=== PATIENT | female | born 1985 | race Caucasian/White ===

== ENCOUNTER 2019-07-26 10:49 | Emergency (ER) | payer BC ==
[~2019-07-26] VITALS: Ht 172 cm; Wt 54.4 kg
[2019-07-26 11:17] LABS: CLARITY,URINE BLOODY; GLUCOSE, URINE (UA) NEGATIVE (NEGATIVE); NITRITE,URINE NEGATIVE (NEGATIVE); PROTEIN,URINE 4+ (NEGATIVE)
--- NOTE | 2019-07-26 11:19 | ED GU-Female ---
General Chief Complaint: - Urinary Stated Complaint: BLOOD IN URINE Nursing Triage Note: Patient reports urinary urgency and hematuria starting this morning. denies nausea or vomiting. Nursing Sepsis Screen: No Definite Risk Source: patient Exam Limitations: no limitations History of Present Illness Date Seen by Provider: Jul 26, 2019 Time Seen by Provider: 11:18 Initial Comments To ER per private vehicle from home with reports of urinary urgency, frequency, marked hematuria starting this morning. Denies any pain denies nausea denies fevers or chills. No history of this. Timing/Duration: constant, getting worse Location: unknown Radiation: none Activities at Onset: none Prior Genitourinary Problems: none Associated Symptoms: dysuria Allergies and Home Medications Allergies Coded Allergies: Sulfa (Sulfonamide Antibiotics) (Unverified Allergy, Unknown, 10/25/15) Patient Home Medication List Home Medication List Reviewed: Yes Review of Systems Review of Systems Constitutional: see HPI; No chills, No fever EENTM: see HPI Respiratory: no symptoms reported Cardiovascular: no symptoms reported Genitourinary: see HPI, hematuria Musculoskeletal: no symptoms reported Skin: no symptoms reported Psychiatric/Neurological: No Symptoms Reported Endocrine: No Symptoms Reported Past Evltnbz-Untvzy-Jzdmew Hx Patient Social History Alcohol Use: Denies Use Recreational Drug Use: No Smoking Status: Never a Smoker Recent Foreign Travel: No Contact w/Someone Who Travel: No Recent Infectious Disease Expo: No Physical Abuse: No Sexual Abuse: No Mistreated: No Past Medical History Surgeries: No Respiratory: No Cardiac: No Neurological: No Reproductive Disorders: No Genitourinary: No Gastrointestinal: No Musculoskeletal: No Endocrine: No HEENT: No Cancer: No Psychosocial: No Integumentary: No Blood Disorders: No Adverse Reaction/Blood Tranf: No Physical Exam Vital Signs Vital Signs - First Documented 07/26/19 11:06 Temp 36.3 Pulse 118 Resp 18 B/P (MAP) 128/88 (101) Pulse Ox 100 Capillary Refill : Less Than 3 Seconds Height, Weight, BMI Height: '" Weight: lbs. oz. kg; 18.00 BMI Method: General Appearance: WD/WN, no apparent distress HEENT: PERRL/EOMI, normal ENT inspection Respiratory: no respiratory distress, no accessory muscle use Gastrointestinal: normal bowel sounds, non tender, soft Back: No CVA tenderness (R), No CVA tenderness (L) Extremities: normal range of motion, non-tender Neurologic/Psychiatric: alert, normal mood/affect, oriented x 3 Skin: normal color, warm/dry Progress/Results/Core Measures Suspected Sepsis Recent Fever Within 48 Hours: No Infection Criteria Present: None New/Unexplained Altered Menta: No Sepsis Screen: No Definite Risk SIRS Temperature: Pulse: 118 Respiratory Rate: 18 Laboratory Tests 07/26/19 11:14: White Blood Count 12.9H Blood Pressure 128 /88 Mean: 101 Laboratory Tests 07/26/19 11:14: Creatinine 0.94, INR Comment 1.0, Platelet Count 254, Total Bilirubin 0.3 Results/Orders Lab Results Laboratory Tests Test 07/26/19 11:08 07/26/19 11:14 Range/Units Urine Color RED H Urine Clarity BLOODY H Urine pH 6.5 5-[address] 1.015 L 1.016-1.022 Urine Protein 4+ NEGATIVE Urine Glucose (UA) NEGATIVE NEGATIVE Urine Ketones NEGATIVE NEGATIVE Urine Nitrite NEGATIVE NEGATIVE Urine Bilirubin NEGATIVE NEGATIVE Urine Urobilinogen NORMAL NORMAL MG/DL Urine Leukocyte Esterase 1+ H NEGATIVE Urine RBC (Auto) 5+ H NEGATIVE Urine RBC TNTC H /HPF Urine WBC 50-100 H /HPF Urine Squamous Epithelial Cells NONE /HPF Urine Crystals NONE /LPF Urine Bacteria TRACE /HPF Urine Casts NONE /LPF Urine Mucus NEGATIVE /LPF Urine Culture Indicated YES White Blood Count 12.9 H 4.3-11.0 10^3/uL Red Blood Count 4.07 L 4.35-5.85 10^6/uL Hemoglobin 13.2 11.5-16.0 G/DL Hematocrit 40 35-52 % Mean Corpuscular Volume 99 80-99 FL Mean Corpuscular Hemoglobin 32 25-34 PG Mean Corpuscular Hemoglobin Concent 33 32-36 G/DL Red Cell Distribution Width 12.9 10.0-14.5 % Platelet Count 254 130-400 10^3/uL Mean Platelet Volume 10.2 7.4-10.4 FL Neutrophils (%) (Auto) 71 42-75 % Lymphocytes (%) (Auto) 21 12-44 % Monocytes (%) (Auto) 7 0-12 % Eosinophils (%) (Auto) 1 0-10 % Basophils (%) (Auto) 0 0-10 % Neutrophils # (Auto) 9.1 H 1.8-7.8 X 10^3 Lymphocytes # (Auto) 2.7 1.0-4.0 X 10^3 Monocytes # (Auto) 0.9 0.0-1.0 X 10^3 Eosinophils # (Auto) 0.1 0.0-0.3 10^3/uL Basophils # (Auto) 0.0 0.0-0.1 10^3/uL Prothrombin Time 13.5 12.2-14.7 SEC INR Comment 1.0 0.8-1.4 Sodium Level 141 135-145 MMOL/L Potassium Level 3.6 3.6-5.0 MMOL/L Chloride Level 106 98-107 MMOL/L Carbon Dioxide Level 20 L 21-32 MMOL/L Anion Gap 15 H 5-14 MMOL/L Blood Urea Nitrogen 15 7-18 MG/DL Creatinine 0.94 0.60-1.30 MG/DL Estimat Glomerular Filtration Rate > 60 BUN/Creatinine Ratio 16 Glucose Level 100 70-105 MG/DL Calcium Level 9.3 8.5-10.1 MG/DL Corrected Calcium 8.9 8.5-10.1 MG/DL Total Bilirubin 0.3 0.1-1.0 MG/DL Aspartate Amino Transf (AST/SGOT) 17 5-34 U/L Alanine Aminotransferase (ALT/SGPT) 16 0-55 U/L Alkaline Phosphatase 46 40-136 U/L Total Protein 7.6 6.4-8.2 GM/DL Albumin 4.5 3.2-4.5 GM/DL Serum Test, Qualitative NEGATIVE NEGATIVE My Orders Orders - ALEXIS HDEZ APRN Ua Culture If Indicated (07/26/19 10:53) Urine Bedside (07/26/19 10:53) Cbc With Automated Diff (07/26/19 11:16) Comprehensive Metabolic Panel (07/26/19 11:16) Protime With Inr (07/26/19 11:16) Ed Iv/Invasive Line Start (07/26/19 11:16) Hcg,Qualitative Serum (07/26/19 11:16) Ns Iv 1000 Ml (Sodium Chloride 0.9%) (07/26/19 11:30) Ct Abdomen/Pelvis W (07/26/19 11:16) Iohexol Injection (Omnipaque 350 Mg/Ml 1 (07/26/19 12:00) Received Contrast (Hold Metformin- Contr (07/26/19 12:00) Ns (Ivpb) (Sodium Chloride 0.9% Ivpb Bag (07/26/19 12:00) Urine Culture (07/26/19 11:08) Ceftriaxone For Iv Use (Rocephin For I (07/26/19 12:30) Medications Given in ED Current Medications Medications Dose Ordered Sig/Anam Route Start Time Stop Time Status Last Admin Dose Admin Ceftriaxone Sodium 1000 mg/ Sterile Water 10 ml @ 200 mls/hr ONCE ONCE IV 07/26/19 12:30 07/26/19 12:32 DC 07/26/19 12:44 200 MLS/HR Iohexol 100 ml ONCE ONCE IV 07/26/19 12:00 07/26/19 12:01 DC 07/26/19 12:10 68 ML Sodium Chloride 100 ml ONCE ONCE IV 07/26/19 12:00 07/26/19 12:01 DC 07/26/19 12:10 100 ML Vital Signs/I&O 07/26/19 11:06 Temp 36.3 Pulse 118 Resp 18 B/P (MAP) 128/88 (101) Pulse Ox 100 Capillary Refill : Less Than 3 Seconds Blood Pressure Mean: 101 POS Diagnostic Imaging Diagonstic Imaging: CT Comments NAME: [facility] REC#: [id number] PT STATUS: REG ER : 1985 PHYSICIAN: ALEXIS HDEZ APRN ADMIT DATE: 07/26/19/ER Draft POSDate of Exam:07/26/19 CT ABDOMEN/PELVIS W PROCEDURE: CT abdomen and pelvis with contrast. TECHNIQUE: Multiple contiguous axial images were obtained through the abdomen and pelvis after administration of intravenous contrast. Auto Exposure Controls were utilized during the CT exam to meet ALARA standards for radiation dose reduction. INDICATION: Lower abdominal pain and cramping. COMPARISON: None. FINDINGS: The lung bases are clear. The gallbladder, solid organs and vascular structures and bowel are unremarkable. The appendix is not identified. There is no indirect signs of acute appendicitis. There is distention of the left gonadal vein and uterine veins. This could represent pelvic congestion syndrome. Please correlate clinically. There is no inflammatory process, free air or free fluid. Distal ureters and urinary bladder are normal. There is no mesenteric or retroperitoneal lymphadenopathy. IMPRESSION: 1. No bowel obstruction or inflammatory process. 2. Distention of the left gonadal vein and uterine vessels on the left, possibly pelvic congestion syndrome. Please correlate clinically. 3. Nonidentified appendix. No indirect signs of acute appendicitis are seen. Dictated on workstation # [id number] Dict: 07/26/19 1219 Trans: 07/26/19 1225 [facility] [id number] Interpreted by: WESTON RAMOS Electronically signed by: Departure Communication (Admissions) The urine sample provided here was grossly bloody on appearance Impression Primary Impression: Acute hemorrhagic cystitis Additional Impression: Urinary tract infection Qualified Codes: N30.01 - Acute cystitis with hematuria Disposition: HOME, SELF-CARE Condition: Stable Departure-Patient Inst. Decision time for Depature: 12:34 Referrals: NO,LOCAL PHYSICIAN (PCP) Primary Care Physician ARTUR RABAGO MD (Family) Primary Care Physician CAR ELI MD Patient Instructions: Blood in the Urine (Hematuria) in Adults, Urinary Tract Infection, Adult (DC) Add. Discharge Instructions: All discharge instructions reviewed with patient and/or family. Voiced understanding. Scripts Cefdinir (Cefdinir) 300 Mg Capsule 300 MG PO BID, #14 CAP 0 Refills Prov: ALEXIS HDEZ APRN 07/26/19 Copy Copies To 1: ARTUR RABAGO MD; CAR ELI MD, PETER J APRN Jul 26, 2019 11:19 POS
[2019-07-26 11:23] LABS: BASOPHILS % (AUTO) 0 % (0-10); EOSINOPHILS # (AUTO) 0.1 10^3/uL (0.0-0.3); EOSINOPHILS % (AUTO) 1 % (0-10); HEMATOCRIT 40 % (35-52); HEMOGLOBIN 13.2 G/DL (11.5-16.0); LYMPHOCYTES # (AUTO) 2.7 X 10^3 (1.0-4.0); LYMPHOCYTES % (AUTO) 21 % (12-44); MEAN CORPUSCULAR HEMOGLOBIN 32 PG (25-34); MEAN CORPUSCULAR HGB CONC 33 G/DL (32-36); MEAN CORPUSCULAR VOLUME 99 FL (80-99); MEAN PLATELET VOLUME 10.2 FL (7.4-10.4); MONOCYTES # (AUTO) 0.9 X 10^3 (0.0-1.0); MONOCYTES % (AUTO) 7 % (0-12); NEUTROPHILS # (AUTO) 9.1 X 10^3 (1.8-7.8); NEUTROPHILS % (AUTO) 71 % (42-75); PLATELET COUNT 254 10^3/uL (130-400); RED CELL DISTRIBUTION WIDTH 12.9 % (10.0-14.5); WHITE BLOOD COUNT 12.9 10^3/uL (4.3-11.0)
[2019-07-26 11:30] LABS: PROTHROMBIN TIME PATIENT 13.5 SEC (12.2-14.7)
[2019-07-26] MEDS ORDERED: NS IV 1000 ML 1,000 ML IV SCH (11:30)
[2019-07-26 11:35] LABS: BILIRUBIN,URINE NEGATIVE (NEGATIVE); KETONES,URINE NEGATIVE (NEGATIVE); LEUKOCYTE ESTERASE ,URINE 1+ (NEGATIVE); PH,URINE 6.5 (5-9)
[2019-07-26 11:39] LABS: ALANINE AMINOTRANSFERASE 16 U/L (0-55); ALBUMIN 4.5 GM/DL (3.2-4.5); ALKALINE PHOSPHATASE 46 U/L (40-136); BILIRUBIN,TOTAL 0.3 MG/DL (0.1-1.0); BUN/CREATININE RATIO 16; CALCIUM 9.3 MG/DL (8.5-10.1); CARBON DIOXIDE 20 MMOL/L (21-32); CHLORIDE 106 MMOL/L (98-107); CREATININE SERUM 0.94 MG/DL (0.60-1.30); GFR ESTIMATED > 60; GLUCOSE 100 MG/DL (70-105); POTASSIUM 3.6 MMOL/L (3.6-5.0); SODIUM 141 MMOL/L (135-145); TOTAL PROTEIN 7.6 GM/DL (6.4-8.2)
[2019-07-26 11:50] LABS: RBC,URINE TNTC /HPF; WBC,URINE 50-100 /HPF
[2019-07-26 11:51] LABS: BACTERIA,URINE TRACE /HPF
[2019-07-26 11:52] LABS: COLOR,URINE RED
[2019-07-26] MEDS ORDERED: NS 100 ML (IVPB) BAG IV ONE (12:00)
[2019-07-26] MEDS ORDERED: IOHEXOL 350 MG/ML 100 ML (OMNIPAQUE 350) VIAL IV ONE (12:00)
[2019-07-26] MEDS ORDERED: HOLD METFORMIN - RECEIVED CONTRAST 20 ML VIAL IV SCH (12:00)
--- NOTE | 2019-07-26 12:26 | Diagnostic Imaging Report ---
PROCEDURE: CT abdomen and pelvis with contrast. TECHNIQUE: Multiple contiguous axial images were obtained through the abdomen and pelvis after administration of intravenous contrast. Auto Exposure Controls were utilized during the CT exam to meet ALARA standards for radiation dose reduction. INDICATION: Lower abdominal pain and cramping. COMPARISON: None. FINDINGS: The lung bases are clear. The gallbladder, solid organs and vascular structures and bowel are unremarkable. The appendix is not identified. There is no indirect signs of acute appendicitis. There is distention of the left gonadal vein and uterine veins. This could represent pelvic congestion syndrome. Please correlate clinically. There is no inflammatory process, free air or free fluid. Distal ureters and urinary bladder are normal. There is no mesenteric or retroperitoneal lymphadenopathy. IMPRESSION: 1. No bowel obstruction or inflammatory process. 2. Distention of the left gonadal vein and uterine vessels on the left, possibly pelvic congestion syndrome. Please correlate clinically. 3. Nonidentified appendix. No indirect signs of acute appendicitis are seen. Dictated by: Dictated on workstation # [id number]
[2019-07-26] MEDS ORDERED: cefTRIAXone FOR IV USE 1,000 MG in WATER (STERILE) FOR INJECTION 10 ML IV ONE (12:30)
[2019-07-26] MEDS ORDERED: CEFD300C3 PO (12:53)
[2019-07-26 13:09] VITALS: BP 128/88
== END 2019-07-26 13:08 | disposition home or self-care (01) ==
LOC: EDUNIT# 10:49 → ER 10:50
DX: N30.01 Acute cystitis with hematuria (principal); N39.0 Urinary tract infection, site not specified; Z88.2 Allergy status to sulfonamides
CPT/HCPCS: 36415; 74177; 80053; 81000; 84703; 85025; 85610; 87077; 87088; 87186; 96361; 96365